=== PATIENT | female | born 1965 | race African-American/Black ===

== ENCOUNTER 2017-02-06 14:58 | Emergency (ER) | payer OTHER ==
[~2017-02-06] VITALS: Ht 167.6 cm; Wt 68.0 kg
[2017-02-06 15:08] VITALS: BP 130/72
== END 2017-02-06 15:26 | disposition home or self-care (01) ==
LOC: ER 15:00
DX: J02.0 Streptococcal pharyngitis (principal)
CPT/HCPCS: 99283; A4606; Z7610